=== PATIENT | female | born 1995 | race Caucasian/White ===

== ENCOUNTER 2018-01-26 20:18 | Emergency (ER) | payer OTHER ==
[~2018-01-26] VITALS: Ht 165.1 cm; Wt 68.0 kg
[2018-01-26] MEDS ORDERED: ACETAMINOPHEN 325MG TABLET PO STA (21:28)
[2018-01-27 01:04] VITALS: BP 103/64
== END 2018-01-27 01:11 | disposition home or self-care (01) ==
LOC: ER 20:18
DX: S50.812A Abrasion of left forearm, initial encounter (principal); S60.011A Contusion of right thumb without damage to nail, initial encounter; V43.52XA Car driver injured in collision with other type car in traffic accident, initial encounter; Y93.89 Activity, other specified; Y92.488 Other paved roadways as the place of occurrence of the external cause
CPT/HCPCS: 73090; 73130; 99284